=== PATIENT | male | born 1980 | race Caucasian/White ===

== ENCOUNTER 2018-07-06 03:14 | Emergency (ER) | payer OTHER ==
[~2018-07-06] VITALS: Ht 172.7 cm; Wt 73.5 kg
[~2018-07-06 03:14] MED LIST: DESPEC-DM TABL1 EACH PO; OSEL75CA PO
[2018-07-06] MEDS ORDERED: DOLOGESIC-DF 51 EACH PO (07:04)
[2018-07-06] MEDS ORDERED: DUI500 PO (07:04)
== END 2018-07-06 07:40 | disposition home or self-care (01) ==
LOC: ER 03:14
DX: L08.89 Other specified local infections of the skin and subcutaneous tissue (principal)